=== PATIENT | male | born 1960 | race Caucasian/White ===

== ENCOUNTER 2020-02-14 22:22 | Emergency (ER) | payer OTHER, SELFPAY ==
[2020-02-14 22:25] VITALS: BP 163/99; PULSE 59; RESP 18; TEMP 37.1; O2SAT 98
--- NOTE | 2020-02-14 22:59 | ED.GENADULT ---
HPI - General Adult General Chief complaint: Skin/Abscess/Foreign Body Stated complaint: BACK WOUND Source: patient Mode of arrival: ambulatory Limitations: no limitations History of Present Illness HPI narrative: Patient is a 59-year-old male who presents for evaluation of rash. Patient reports a blister and rash on his left flank, which is mildly warm. No tenderness, no itching. No recent insect bites or exposures that he is aware of. No history of skin infection. He is not diabetic. No fever or chills. Patient states he was taking off his clothes, brushed his hand over his right lower back, felt a blister, looked in the mirror and saw some redness which concerned him and is ultimately why he sought care in the emergency department. Related Data Home Medications Medication Instructions Recorded Confirmed ezetimibe mg 02/14/20 gabapentin 02/14/20 Allergies Allergy/AdvReac Type Severity Reaction Status Date / Time No Known Allergies Allergy Verified 02/14/20 22:29 Review of Systems Review of Systems: Narrative: CONSTITUTIONAL: Denies fever CARDIOVASCULAR: Denies chest pain RESPIRATORY: Denies cough or dyspnea. GASTROINTESTINAL: Denies abdominal pain SKIN: Reports erythema, blistering to right flank MUSCULOSKELETAL: Denies back pain NEUROLOGIC: Denies headache PMFSH Past Medical History Medical History Chronic back pain Disc herniation Sciatica Social History Social History (Updated 02/14/20 @ 23:10 by Mely Haq MD) Smoking status: Never smoker Alcohol intake: current Substance use: never Living arrangements: with family Gender identity (if verbalized by the patient): Male Exam Narrative: Exam Narrative: GENERAL: Awake, alert, conversant HEAD: Normocephalic, atraumatic. EYES: PERRLA and EOMI. ENT: Nares clear, no rhinorrhea or epistaxis. Mucous membranes moist. NECK: Supple. CHEST: No respiratory distress, breathing even and non labored HEART: Regular rate, sinus rhythm ABDOMEN:Non distended, non tender EXTREMITIES: Normal range of motion. No edema. SKIN: 5 cm x 6 cm area of erythema, 1 open blister present, second blister present, no vesicles, no clusters of lesions, no eschar NEURO:No focal deficits. Alert and oriented x3. Ambulatory with a narrow base, steady gait. Course Course Emergency Course: Patient presented for evaluation of rash to right lower back which seems most consistent with cellulitis. Patient without any systemic signs of illness. No sign of necrotizing infection on exam. No purulent abscess. This does not seem consistent with shingles given there are no clusters of vesicles. Could be possible envenomation versus early cellulitis. Will start oral antibiotics on this patient was tolerating oral intake, otherwise feeling well. The wound was outlined, he was advised to return within 72 hours if he was unable to tolerate antibiotic, had worsening erythema, or other concerning symptoms. Patient was then discharged home. Vital Signs Vital signs: Vital Signs Temperature 37.1 C 02/14/20 22:25 Pulse Rate 59 L 02/14/20 22:25 Respiratory Rate 18 02/14/20 22:25 Blood Pressure 163/99 H 02/14/20 22:25 Pulse Oximetry 98 02/14/20 22:25 Temperature 37.1 C 02/14/20 22:25 Pulse Rate 59 L 02/14/20 22:25 Respiratory Rate 18 02/14/20 22:25 Blood Pressure 163/99 H 02/14/20 22:25 Pulse Oximetry 98 02/14/20 22:25 Medical Decision Making Vital Signs Vital Signs: Vital Signs Temperature 37.1 C 02/14/20 22:25 Pulse Rate 59 L 02/14/20 22:25 Respiratory Rate 18 02/14/20 22:25 Blood Pressure 163/99 H 02/14/20 22:25 Pulse Oximetry 98 02/14/20 22:25 Temperature 37.1 C 02/14/20 22:25 Pulse Rate 59 L 02/14/20 22:25 Respiratory Rate 18 02/14/20 22:25 Blood Pressure 163/99 H 02/14/20 22:25 Pulse Oximetry 98 02/14/20 22:25 Discharge Plan Discharge
[2020-02-14 23:36] VITALS: BP 137/76; PULSE 79; RESP 19; TEMP 36.8; O2SAT 100
[2020-02-14] MEDS: CLINDAMYCIN HCL 150 MG CAP 300 MG PO (23:36)
== END 2020-02-14 23:37 | disposition home or self-care (01) ==
PROVIDERS: Emergency Provider Emergency Medicine
DX: L03.312 Cellulitis of back [any part except buttock and flank] (principal)
CPT/HCPCS: 99283; A9270

== ENCOUNTER 2022-01-23 11:16 | Outpatient (RCR) | payer OTHER, SELFPAY ==
--- NOTE | 2022-01-25 07:22 | PTOPEVAL ---
Thank you for referring Marky Rogel to [facility].? The patient is scheduled to be seen for therapy? ____x/week for ___ weeks. Please review, sign, date and return this plan of care JANAK. I agree with and certify that the following plan of care is medically necessary. Referring Physician Date Admitting Provider: Attending Provider: Elham Quinn Referring Provider: YARIEL Outpatient Evaluation Start: 01/23/22 10:59 Freq: Status: Active Protocol: Document 01/23/22 11:05 [facility] (Rec: 01/23/22 11:56 [facility] [id number]) Therapy Assessment Status Assessment Status Assessment Status Evaluation Evaluation Information Problem Diagnosis persistent headaches, dizziness Onset 01/01/22 Additional Evaluation Detail DHI = 44% functionally declined Subjective Information patient reports he has been Query Text:As Reported By Patient/ having dizziness and headaches Family since 01/01/22. he reports he was hauled to the by an ambulance due to high blood pressure. he reports he has pressure all the time in his head. he reports he has dizziness all the time, but does increase a bit with laying down in bed, and getting up in chair. he reports spinning to the L side when laying down in bed. he reports the headaches are there all day and feels like a slight bit of pressure. he reports he has seen a neurosurgeon. he reports he is trying to get into an ENT. Prior Level of Function Comments Additional Prior Level of Function patient reports he would like Comments to get back to work JANAK. Pain Assessment Timing of Pain Assessment Timing of Pain Assessment Assessment Pain Scale Pain Scale Used Numeric (1 - 10) Self Report Pain Assessment Head Reported Pain Level 4 Pain Description Pressure Greatest Pain Intensity 9 Additional Pain Comments increased with talking. Pain Score Pain Score 4: Self Report Interventions Used Interventions Used By Clinicians Rest Cervical and Lumbar ROM Cervical ROM Cervical Flexion (0-60) 40 Query Text:Active in Degrees Cervical Extension (0-70) 44 Query Text:Active in Degrees
== END 2022-01-26 13:49 | disposition home or self-care (01) ==
LOC: CHSPT 11:16
PROVIDERS: PCP Internal Medicine
DX: R51.9 Headache, unspecified (principal); R42 Dizziness and giddiness
CPT/HCPCS: 97110; 97112; 97161

== ENCOUNTER 2022-08-03 18:46 | Emergency (ER) | payer OTHER, SELFPAY ==
[2022-08-03 18:48] VITALS: BP 135/77; PULSE 62; RESP 16; TEMP 36.6; O2SAT 98
--- NOTE | 2022-08-03 18:50 | ED.EYEPROB ---
HPI - Eye Problem General Chief complaint: Eye Problems Stated complaint: pain in left eye Time Seen by Provider: 08/03/22 18:48 Source: patient and RN notes reviewed Mode of arrival: ambulatory Limitations: no limitations History of Present Illness HPI Narrative: patient was mowing earlier today and thought he got something into his left eye because it was windy. He has tried flushing it at home but it still feels like there is something underneath his eyelid. chief complaint: eye pain, eye injury and foreign body Onset description: sudden Duration: constant Location: left eye Eye Symptoms: pain and foreign body sensation Place: home Mechanism: other ( Mowing the yd) Severity: moderate Related Data Home Medications Medication Instructions Recorded Confirmed ezetimibe 10 mg tablet 10 mg PO DAILY 01/29/22 08/03/22 meloxicam 15 mg tablet 15 mg PO DAILY 01/29/22 08/03/22 tamsulosin 0.4 mg capsule 0.4 mg PO DAILY 01/29/22 08/03/22 tolterodine 4 mg capsule,extended 4 mg PO DAILY 01/29/22 08/03/22 release 24 hr Allergies Allergy/AdvReac Type Severity Reaction Status Date / Time No Known Allergies Allergy Verified 08/03/22 19:04 Review of Systems Review of Systems: All systems reviewed & are unremarkable except as noted in HPI and below PMFSH Past Medical History Medical History (Updated 08/03/22 @ 19:09 by Joseph Hubbard MD) Chronic back pain Disc herniation Sciatica Family History Family History Father Alcoholism Mother Cancer Heart disease Social History Social History Smoking status: Never smoker Alcohol intake: current Substance use: never Gender identity (if verbalized by the patient): Male Exam Const: General: healthy appearing, no acute distress and alert Nutritional Appearance: well nourished Orientation/consciousness: patient oriented x3 Limitations: no limitations HENMT: Head: normal to inspection Ears: external ears normal Face/Nose/Sinus: Normal external nose present Face and sinus: normal facial exam Mouth: Yes moist mucous membranes Eyes: Alignment and Position: alignment normal Periorbital: periorbital findings normal Eyelids: eyelids normal ( Left eyelid inverted no foreign body) Conjunctivae: conjunctivae normal Sclera: scleral abnormality left scleral injection diffuse Cornea: fluorescein used Pupils: Equal, round and reactive pupils present EOM: EOMs intact bilaterally Neck: Neck: normal visual inspection Resp: Effort & Inspection: normal respiratory effort Auscultation: clear to auscultation bilaterally Cardio: Rate: regular rate Rhythm: regular rhythm GI: GI Palp: Yes Soft to palpation and No Tenderness to palpation present (GI) Auscultation: normal bowel sounds Back/Spine/Pelvis: Cervical Spine: cervical ROM normal Thoracic/Lumbar Spine: thoraco-lumbar ROM normal Skin: General skin exam: normal color Rashes: no rashes Neuro: General: patient oriented x3, moves all extremities, no focal motor deficits and CN's II-XI intact bilaterally Speech: normal speech Gait exam (Neuro): Normal gait present Extrem: General: normal to inspection and no clubbing, cyanosis or edema Psych: Mental Status: mental status grossly normal Affect: normal affect Attitude: cooperative Course Vital Signs Vital signs: Vital Signs Temperature 36.6 C 08/03/22 18:48 Pulse Rate 62 08/03/22 18:48 Respiratory Rate 16 08/03/22 18:48 Blood Pressure 135/77 08/03/22 18:48 Pulse Oximetry 98 08/03/22 18:48 Oxygen Delivery Room Air 08/03/22 18:48 Temperature 36.6 C 08/03/22 18:48 Pulse Rate 62 08/03/22 18:48 Respiratory Rate 16 08/03/22 18:48 Blood Pressure 135/77 08/03/22 18:48 Pulse Oximetry 98 08/03/22 18:48 Oxygen Delivery Room Air 08/03/22 18:48 Discharge Plan Discharge Clinical Impression: Foreign
[2022-08-03] MEDS: FLUORESCEIN SOD 1 MG/STRIP LEFT EYE (18:58)
[2022-08-03] MEDS: TETRACAINE HCL 0.5% OPHTH SOLN 4 ML BTL 1 DROP AFFCTD EYE (18:58)
[2022-08-03] MEDS: DACRIOSE EYE IRRIGATION 118 ML BOTTLE RIGHT EYE (18:58)
[2022-08-03] MEDS: TOBRAMYCIN/DEXAMETHASONE OP 2.5 ML BTL 1 DROP LEFT EYE (19:17)
== END 2022-08-03 19:20 | disposition home or self-care (01) ==
LOC: CHSED 19:11
PROVIDERS: Emergency Provider Emergency Medicine; PCP Internal Medicine
DX: T15.92XA Foreign body on external eye, part unspecified, left eye, initial encounter (principal)
CPT/HCPCS: 99283; A9270

== ENCOUNTER 2023-03-09 06:50 | Emergency (ER) | payer OTHER, SELFPAY ==
[2023-03-09 06:52] VITALS: BP 144/94; PULSE 81; RESP 20; TEMP 36.6; O2SAT 97
[2023-03-09] MEDS: FLUORESCEIN SOD 1 MG/STRIP EACH EYE (07:09)
[2023-03-09] MEDS: TETRACAINE HCL 0.5% OPHTH SOLN 4 ML BTL 1 DROP EACH EYE (07:09)
[2023-03-09] MEDS: DACRIOSE EYE IRRIGATION 118 ML BOTTLE 10 ML EACH EYE (07:10)
--- NOTE | 2023-03-09 07:22 | ED.EYEPROB ---
HPI - Eye Problem General Chief complaint: Eye Problems Stated complaint: left eye pain Time Seen by Provider: 03/09/23 07:03 Source: patient Mode of arrival: ambulatory Limitations: no limitations History of Present Illness HPI Narrative: this is a 62-year-old gentleman that presents with some after he was mowing lawn a foreign body sensation in his left eye with tearing redness with no visual disturbance has a hard time opening closing eyes secondary to tenderness and inflammation. chief complaint: eye pain, eye redness and foreign body Onset (ago): hour(s) Duration: constant Location: left eye Eye Symptoms: redness and foreign body sensation Related Data Home Medications Medication Instructions Recorded Confirmed ezetimibe 10 mg tablet 10 mg PO DAILY 01/29/22 08/03/22 meloxicam 15 mg tablet 15 mg PO DAILY 01/29/22 08/03/22 tamsulosin 0.4 mg capsule 0.4 mg PO DAILY 01/29/22 08/03/22 tolterodine 4 mg capsule,extended 4 mg PO DAILY 01/29/22 08/03/22 release 24 hr Allergies Allergy/AdvReac Type Severity Reaction Status Date / Time No Known Allergies Allergy Verified 08/03/22 19:04 Review of Systems Review of Systems: All systems reviewed & are unremarkable except as noted in HPI and below PMFSH Past Medical History Medical History (Updated 03/09/23 @ 07:26 by Dashawn Rodriguez MD) Chronic back pain Disc herniation Sciatica Family History Family History Father Alcoholism Mother Cancer Heart disease Social History Social History Smoking status: Never smoker Alcohol intake: current Substance use: never Living arrangements: with family Gender identity (if verbalized by the patient): Male Exam Const: General: healthy appearing Nutritional Appearance: well nourished Orientation/consciousness: patient oriented x3 Limitations: no limitations HENMT: Head: normal to inspection Eyes: Conjunctivae: conjunctivae normal EOM: EOMs intact bilaterally Neck: Neck: normal visual inspection Chest: Chest palpation & inspection: normal inspection of the chest Resp: Effort & Inspection: normal respiratory effort Cardio: Rate: regular rate Rhythm: regular rhythm GI: GI Palp: Yes Soft to palpation Auscultation: normal bowel sounds Skin: General skin exam: normal color Rashes: no rashes Neuro: General: patient oriented x3 and moves all extremities Extrem: General: normal to inspection Psych: Mental Status: mental status grossly normal Course Course Emergency Course: Left thigh numbing medication and irrigated the left side did not visualize any foreign objects and fluorescein stain was used and no corneal abrasion visualized, patient received a drop of antibiotic eyedrop. Vital Signs Vital signs: Vital Signs Temperature 36.6 C 03/09/23 06:52 Pulse Rate 81 03/09/23 06:52 Respiratory Rate 20 03/09/23 06:52 Blood Pressure 144/94 H 03/09/23 06:52 Pulse Oximetry 97 03/09/23 06:52 Oxygen Delivery Room Air 03/09/23 06:52 Temperature 36.6 C 03/09/23 06:52 Pulse Rate 81 03/09/23 06:52 Respiratory Rate 20 03/09/23 06:52 Blood Pressure 144/94 H 03/09/23 06:52 Pulse Oximetry 97 03/09/23 06:52 Oxygen Delivery Room Air 03/09/23 06:52 Procedures FB Removal Eye Foreign Body #1: Foreign Body Removal Date: 03/09/23 Foreign Body Removal Time: 07:27 Time Out performed: Yes Location: eye (L) Topical anesthetic used: tetracaine Foreign body: other Evidence of corneal penetration: No Technique: irrigation and cotton tip swab Procedure performed under: direct visualization with magnification Post-procedure medication: ophthalmic antibiotic Patient tolerated procedure: well Critical Care Time Critical Care Time Critical Care Time: No Discharge Plan Discharge
[2023-03-09 07:50] VITALS: BP 145/78; PULSE 88; RESP 18; TEMP 36.8; O2SAT 97
[2023-03-09] MEDS: NEOMYCIN/POLYMYXIN/DEXAMETH OP SUSP 5 ML BTL 1 DROP LEFT EYE (07:51)
== END 2023-03-09 07:55 | disposition home or self-care (01) ==
PROVIDERS: Emergency Provider Emergency Medicine; PCP Internal Medicine
DX: T15.92XA Foreign body on external eye, part unspecified, left eye, initial encounter (principal); X58.XXXA Exposure to other specified factors, initial encounter
CPT/HCPCS: 65205; 99283; A9270

== ENCOUNTER 2024-01-31 08:44 | Emergency (ER) | payer OTHER, SELFPAY ==
--- NOTE | ~2024-01-31 | CT_ITS ---
Non-contrast Head CT History: Dizziness Technique: Axial non-contrast imaging of the brain was performed. Dose reduction technique was used on this scan by utilizing automated exposure control and iterative reconstruction technique. The dose -length product (DLP) was 681.00 mGy-cm. Findings: There is no evidence of intracranial hemorrhage, mass lesion, or acute infarct. Brain par enchyma appears normal. The ventricles and subarachnoid spaces are normal in size. The calvarium ap pears normal. The visualized paranasal sinuses and mastoid air cells are clear. Impression: No significant abnormality seen. Reviewed, dictated and finalized at location . Impression: No significant abnormality seen.
--- NOTE | ~2024-01-31 | XR_ITS ---
EXAMINATION: XR chest 2V 01/31/2024 09:22 INDICATION: Dizziness PROCEDURE: 2 view chest COMPARISON: No prior studies for comparison. FINDINGS: The lungs are clear. The cardiomediastinal silhouette is within normal limits. There are no pleural effusions. There is no pneumothorax suspected. IMPRESSION: 1: NO ACUTE CARDIOPULMONARY DISEASE. Reviewed, dictated and finalized at location B.
--- NOTE | 2024-01-31 08:47 | ECG_ITS ---
SEE SCANNED COPY FOR CONFIRMED REPORT MTDD
[2024-01-31 08:50] VITALS: BP 156/114; PULSE 121; RESP 20; TEMP 36.6; O2SAT 97
--- NOTE | 2024-01-31 08:51 | ED.DIZZY ---
HPI - Dizziness General Chief Complaint: Dizziness Stated Complaint: dizziness Source: patient Mode of arrival: ambulatory Limitations: no limitations History of Present Illness HPI Narrative: Patient is a 63-year-old male with a heart ablation for AFib done last week. He is here with dizziness which started when he woke this morning. He is having trouble walking due to the dizziness. 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 He missed a dose of Eliquis but did take it today. MD elicited complaint: dizziness and lightheadedness Pertinent past history: other ( AFib) Onset (ago): hour(s) Timing: awoke with symptoms Severity: moderate Description: sense of movement, room spinning , lightheadedness and off-balance Context: other ( recent ablation done) History of similar symptoms: Yes Exacerbating factors: movement/ambulation and change in body position Relieving factors: remaining still Associated symptoms: denies other symptoms Related Data Home Medications Medication Instructions Recorded Confirmed ezetimibe 10 mg tablet 10 mg PO DAILY 01/29/22 08/03/22 meloxicam 15 mg tablet 15 mg PO DAILY 01/29/22 08/03/22 tamsulosin 0.4 mg capsule 0.4 mg PO DAILY 01/29/22 08/03/22 tolterodine 4 mg capsule,extended 4 mg PO DAILY 01/29/22 08/03/22 release 24 hr Allergies Allergy/AdvReac Type Severity Reaction Status Date / Time [id number] Reductase Allergy Unknown Verified 01/31/24 08:47 Inhibitor Review of Systems Review of Systems: All systems reviewed & are unremarkable except as noted in HPI and below Constitutional: Constitutional: Reports no additional constitutional complaints Eyes: Eyes: Reports no additional eye complaints ENT: Reports system reviewed and no additional complaints, except as documented Cardiovascular: Cardiovascular: Reports no additional cardiovascular complaints Respiratory: Respiratory: Reports no additional respiratory complaints Gastrointestinal: Gastrointestinal: Reports no additional gastrointestinal complaints Genitourinary: Genitourinary: Reports no additional male genitourinary complaints Musculoskeletal: Musculoskeletal: Reports no additional musculoskeletal complaints Integumentary/Breasts: Skin/Breast: Reports system reviewed and no additional complaints, except as docu Neurologic: Reports system reviewed and no additional complaints, except as documented Psychiatric: Psychiatric: Reports no additional psychiatric complaints Endocrine: Endocrine: Reports no additional endocrine complaints Hematologic/Lymphatic: Hematologic/Lymphatic: Reports no additional hematologic/lymphatic complaints Allergic/Immunologic: Allergic/Immunologic: Reports no additional allergic/immunologic complaints [facility] Past Medical History Medical History (Updated 01/31/24 @ 10:05 by Mark Stewart MD) Chronic back pain Disc herniation Sciatica Family History Family History Father Alcoholism Mother Cancer Heart disease Social History Social History Smoking status: Never smoker Alcohol intake: current Substance use: never Living arrangements: with family Gender identity (if verbalized by the patient): Male Exam Const: General: healthy appearing Nutritional Appearance: well nourished Orientation/consciousness: patient oriented x3 HENMT: Head: normal to inspection Ears: TM's normal bilaterally Face/Nose/Sinus: Normal external nose present Eyes: Conjunctivae: conjunctivae normal Pupils: Equal, round and reactive pupils present EOM: EOMs intact bilaterally Neck: Neck: normal visual inspection Chest: Chest palpation & inspection: normal inspection of the chest Resp: Effort & Inspection: normal respiratory effort and not labored Auscultation:
[2024-01-31 08:57] VITALS: PULSE 121
[2024-01-31 09:00] VITALS: BP 154/111; PULSE 116; RESP 18; O2SAT 94
[2024-01-31] MEDS: dilTIAZem HCl INJ 25 MG/5 ML VIAL 10 MG IV PUSH (09:03)
[2024-01-31 09:05] LABS: Basophils Absolute Auto 0.03 K/mm3 (0.00-0.10); Basophils Percent Auto 0.5 % (0.0-1.0); Eosinophils Absolute Auto 0.14 K/mm3 (0.02-0.50); Eosinophils Percent Auto 2.3 % (1.0-6.0); Hematocrit 46.8 % (40.0-54.0); Hemoglobin 15.7 g/dL (14.0-18.0); Immature Granulocyte Absolute 0.03 K/mm3 (0.00-0.00); Immature Granulocyte Percent A 0.5 % (0.0-0.0); Lymphocytes Absolute Auto 1.49 K/mm3 (1.10-4.50); Lymphocytes Percent Auto 24.5 % (18.0-42.0); Mean Corpuscular HGB Conc 33.5 g/dL (32-36); Mean Corpuscular Hemoglobin 29.2 pg (27.0-31.0); Mean Corpuscular Volume 87.2 fL (78.0-102.0); Mean Platelet Volume 10.3 fl (8.7-11.0); Monocytes Absolute Auto 0.58 K/mm3 (0.10-0.90); Monocytes Percent Auto 9.6 % (2.0-11.0); Neutrophils Percent Auto 62.6 % (50.0-70.0); Platelet Count Result 199 K/mm3 (150-420); Red Blood Count 5.37 M/mm3 (4.70-6.10); Red Cell Distribution Width 13.3 % (11.6-14.4); White Blood Count 6.1 K/mm3 (4.8-10.8)
[2024-01-31 09:18] LABS: Partial Thromboplastin Time 29.5 Sec (23.9-30.70); Prothrombin Time 11.4 Seconds (9.50-12.1)
[2024-01-31 09:21] LABS: Alanine Aminotransferase 23 U/L (16-63); Albumin Level 3.4 g/dL (3.4-5.0); Alkaline Phosphatase 80 U/L (46-116); Anion Gap 7 mmol/L (4-12); Aspartate Amino Transferase < 10 U/L (15-37); Bilirubin,Total 0.6 mg/dL (0.00-1.00); Blood Urea Nitrogen 18 mg/dL (7-18); Carbon Dioxide 31 mmol/L (21-32); Chloride 102 mmol/L (98-108); Estimated CRCL calculation 85 ml/min; Estimated Glomerular Filt Rate > 60; Glucose 147 mg/dL (70-99); Osmolality Calculated 294 mOsm/kg (285-295); Potassium 3.7 mmol/L (3.5-5.1); Sodium 140 mmol/L (136-145); Troponin I 9.8 ng/L (0.00-60.4)
[2024-01-31 09:22] LABS: Magnesium 1.8 mg/dL (1.8-2.4)
[2024-01-31] MEDS: ONDANSETRON INJ 4 MG/2 ML VIAL IV PUSH (09:24)
[2024-01-31 09:30] VITALS: BP 137/72; PULSE 72; RESP 18; O2SAT 92
--- NOTE | 2024-01-31 09:48 | ECG_ITS ---
SEE SCANNED COPY FOR CONFIRMED REPORT MTDD
[2024-01-31 10:00] VITALS: BP 117/85; PULSE 82; RESP 16; O2SAT 93
[2024-01-31 10:26] VITALS: BP 133/95
== END 2024-01-31 10:29 | disposition home or self-care (01) ==
PROVIDERS: Emergency Provider Emergency Medicine; PCP Internal Medicine
DX: I48.91 Unspecified atrial fibrillation (principal); R42 Dizziness and giddiness; Z79.01 Long term (current) use of anticoagulants
CPT/HCPCS: 36415; 70450; 71046; 80053; 83735; 84484; 85025; 85610; 85730; 93005; 96374; 96375; 99284; J2405